=== PATIENT | male | born 1980 | race Two or more races ===

== ENCOUNTER 2018-01-03 13:18 | Emergency (ER) | payer OTHER ==
[2018-01-03 13:35] VITALS: BP 126/69; PULSE 75; TEMP 98.4; BMI 26.6
--- NOTE | 2018-01-03 13:53 | PDOC ---
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) COPD: No - Suicide/Smoking/Psychosocial Hx Smoking History: Never smoked Review of Systems - Review of Systems Able to Perform ROS?: Yes Comments:: 01/03/18 13:52 CONSTITUTIONAL: Absent: fever, chills, diaphoresis, generalized weakness, malaise, loss of appetite CARDIOVASCULAR: Present: chest pain made worse with movement Absent: loss of consciousness, palpitations, irregular heart rate, peripheral edema RESPIRATORY: Absent: cough, shortness of breath, dyspnea with exertion, orthopnea, wheezing, stridor, hemoptysis MUSCULOSKELETAL: Absent: myalgia, arthralgia, joint swelling SKIN: Absent: rash, itching, pallor NEUROLOGIC: Absent: headache, focal weakness or paresthesias, dizziness, unsteady gait, seizure, mental status changes, bladder or bowel incontinence Is the patient limited Icelandic proficient: No *Physical Exam - Vital Signs Last Vital Signs Temp Pulse Resp BP Pulse Ox 98.4 F 75 18 126/69 99 01/03/18 13:32 01/03/18 13:32 01/03/18 13:32 01/03/18 13:32 01/03/18 13:32 - Physical Exam Comments: 01/03/18 13:53 GENERAL: Well developed, well nourished. Awake and alert. No acute distress. HEENT: Normocephalic, atraumatic. PERRLA, EOMI. No conjunctival pallor. Sclera are non- icteric. Moist mucous membranes. Oropharynx is clear. NECK: Supple. Full ROM. No JVD. Carotid pulses 2+ and symmetric, without bruits. No thyromegaly. No lymphadenopathy. CARDIOVASCULAR: Regular rate and rhythm. No murmurs, rubs, or gallops. Distal pulses are 2+ and symmetric. PULMONARY: No evidence of respiratory distress. Lungs clear to auscultation bilaterally. No wheezing, rales or rhonchi. ABDOMINAL: Soft. Non-tender. Non-distended. No rebound or guarding. No organomegaly. Normoactive bowel sounds. MUSCULOSKELETAL Normal range of motion at all joints. No bony deformities or tenderness. No CVA tenderness. EXTREMITIES: No cyanosis. No clubbing. No edema. No calf tenderness. SKIN: Warm and dry. Normal capillary refill. No rashes. No jaundice. NEUROLOGICAL: Alert, awake, appropriate. Cranial nerves 2-12 intact. No deficits to light touch and temperature in face, upper extremities and lower extremities. No motor deficits in the in face, upper extremities and lower extremities. Normoreflexic in the upper and lower extremities. Normal speech. Toes are down- going bilaterally. Gait is normal without ataxia. PSYCHIATRIC: Cooperative. Good eye contact. Appropriate mood and affect. Medical Decision Making - Medical Decision Making 01/03/18 19:30 EKG: Rate 59 bpm, normal sinus rhythm,QTC 370, normal axis. No acute ST-T wave changes *DC/Admit/Observation/Transfer Diagnosis at time of Disposition: Fusion congenital, ribs - Discharge Dispostion Disposition: HOME Condition at time of disposition: Stable Decision to Admit order: No - Referrals Referrals: Andres Zaidi [Primary Care Provider] - - Patient Instructions Printed Discharge Instructions: DI for Atypical Chest Pain Additional Instructions: Your rib x-ray showed fusion of your right third and fourth ribs. This is a normal variant. This may be causing some arthritis. Please take Motrin 800 mg every 8 hours as needed for pain. A prescription was sent to the pharmacy. You make take glucosamine (vitamin) to help with recurrence. Please follow up with physical therapy. Follow-up with her primary care doctor. Return to the emergency department via worsening pain, shortness of breath, difficulty breathing, or have any changes in her symptoms. - Post Discharge Activity Forms/Work/School Notes: Back to Work
--- NOTE | 2018-01-04 23:57 | EKG ---
Test Reason : Blood Pressure : / mmHG Vent. Rate : 059 BPM Atrial Rate : 059 BPM P-R Int : 144 ms QRS Dur : 094 ms QT Int : 374 ms P-R-T Axes : 009 068 038 degrees QTc Int : 370 ms SINUS BRADYCARDIA OTHERWISE NORMAL ECG NO PREVIOUS ECGS AVAILABLE Confirmed by NISHA DELGADO MD ([id number]) on 01/04/2018 11:57:01 PM Referred By: RS Confirmed By:NISHA DELGAOD MD
== END 2018-01-03 15:17 | disposition home or self-care (01) ==
LOC: JERFT 13:18
DX: Q76.6 Other congenital malformations of ribs (principal)
CPT/HCPCS: 71046-TC-FY; 93005; 93010; 99281-25

== ENCOUNTER 2022-09-04 20:31 | Day surgery (SDC) | payer OTHER ==
[2022-09-04 20:40] VITALS: BMI 27.0
[2022-09-04] MEDS ORDERED: SODIUM CHLORIDE 1,000 ML IV STA (21:35)
[2022-09-04] MEDS ORDERED: ACETAMINOPHEN 1000 MG/100 ML BAG IVPB ONE (21:43)
[2022-09-04] MEDS ORDERED: ACETAMINOPHEN INJECTION 100 ML IVPB ONE (22:00)
[2022-09-04 22:44] LABS: BASO % 0.9 % (0-2.0); EOS % 3.3 % (0-4.5); HEMATOCRIT 45.7 % (35.4-49); LYMPH % 44.7 % (8-40); MCH 27.4 pg (25.7-33.7); MCHC 34.9 g/dl (32.0-35.9); MEAN CELL VOLUME 78.4 fl (80-96); MEAN PLT VOLUME 8.4 fl (7.5-11.1); MONO % 4.6 % (3.8-10.2); NEUT % 46.5 % (42.8-82.8); PLATELET COUNT 317 10^3/uL (134-434); RBC 5.84 M/mm3 (4.00-5.60); RDW 13.3 % (11.9-15.9); WHITE BLOOD COUNT 10.2 K/mm3 (4.0-10.0)
[2022-09-04 22:57] LABS: INR 1.02 (0.83-1.09); PROTHROMBIN TIME (PATIENT) 11.7 SEC (9.7-13.0)
[2022-09-04 23:00] LABS: ACTIVATED PTT 34.2 SECONDS (25.2-36.5)
[2022-09-04 23:08] LABS: ALBUMIN 3.9 g/dl (3.4-5.0); CALCIUM 9.3 mg/dL (8.5-10.1)
[2022-09-04 23:09] LABS: BLOOD UREA NITROGEN 21.8 mg/dL (7-18)
[2022-09-04 23:12] LABS: CREATININE 1.1 mg/dL (0.55-1.3)
[2022-09-04 23:13] LABS: TOT PROT 7.2 g/dl (6.4-8.2)
[2022-09-04 23:14] LABS: BILIRUBIN,TOTAL 0.5 mg/dL (0.2-1)
[2022-09-05] MEDS ORDERED: PIPERACILLIN/TAZOB 4.5 GM 4.5 GM in DEXTROSE 5%-WATER 100 ML IVPB ONE (00:46)
[2022-09-05] MEDS ORDERED: SODIUM CHLORIDE 1,000 ML IV SCH ×2 (03:45→11:03)
[2022-09-05] MEDS ORDERED: ACETAMINOPHEN 1000 MG/100 ML BAG IVPB PRN ×2 (08:42→11:03)
[2022-09-05] MEDS ORDERED: PROPOFOL 40 ML ONE (08:59)
[2022-09-05] MEDS ORDERED: MIDAZOLAM HCL 2 MG/2 ML SINGLE DOSE VIAL ONE (08:59)
[2022-09-05] MEDS ORDERED: SUCCINYLCHOLINE CHLORIDE 200 MG/10 ML SYRINGE ONE (08:59)
[2022-09-05] MEDS ORDERED: ROCURONIUM BROMIDE 50 MG/5 ML SYRINGE ONE (08:59)
[2022-09-05] MEDS ORDERED: LIDOCAINE HCL 2% 100 MG/5 ML DISP.SYRIN ONE (08:59)
[2022-09-05] MEDS ORDERED: PIPERACILLIN/TAZOBACTAM 3.375 GM VIAL IVPB ONE (09:45)
[2022-09-05] MEDS ORDERED: DEXAMETHASONE SOD PHOSPHATE 4 MG/1 ML VIAL ONE (09:48)
[2022-09-05] MEDS ORDERED: ACETAMINOPHEN INJECTION 100 ML IVPB ONE ×2 (09:56)
[2022-09-05] MEDS ORDERED: ONDANSETRON 4 MG/2 ML VIAL ONE (09:56)
[2022-09-05] MEDS ORDERED: PIPERACILLIN/TAZOB 3.375 GM 3.375 GM in DEXTROSE 5%-WATER - 50 ML IVPB SCH (10:00)
[2022-09-05] MEDS ORDERED: NEOSTIGMINE METHYLSULFATE 0.5 MG/ML - 10 ML MDV ONE (10:22)
[2022-09-05] MEDS ORDERED: GLYCOPYRROLATE 0.2 MG/1 ML VIAL ONE (10:22)
[2022-09-05 10:23] LABS: PH,URINE 6.5 (5.0-8.0); URINE APPEARANCE CLEAR; URINE BILIRUBIN NEGATIVE (NEGATIVE); URINE COLOR YELLOW; URINE GLUCOSE (UA) NEGATIVE (NEGATIVE); URINE KETONE NEGATIVE (NEGATIVE); URINE LEUK ESTERASE NEGATIVE (NEGATIVE); URINE NITRITE NEGATIVE (NEGATIVE); URINE PROTEIN NEGATIVE (NEGATIVE); URINE UROBILINOGEN 0.2 mg/dL (0.2-1.0)
[2022-09-05] MEDS ORDERED: BUPIVACAINE HCL/PF 0.5% (5 MG/ML) 30 ML VIAL IJ ONE ×2 (10:23)
[2022-09-05] MEDS ORDERED: oxyCODONE HCL 5 MG TABLET PO PRN (10:37)
[2022-09-05] MEDS ORDERED: KETOROLAC TROMETHAMINE 15 MG/ML VIAL IM PRN (10:37)
[2022-09-05] MEDS ORDERED: DOCUSATE SODIUM 100 MG CAPSULE (FP) PO PRN (10:37)
[2022-09-05] MEDS ORDERED: ONDANSETRON 4 MG/2 ML VIAL IVPUSH PRN (10:56)
[2022-09-05] MEDS ORDERED: LACTATED RINGERS SOLUTION 1,000 ML IV SCH (11:00)
[2022-09-05 13:26] LABS: BASO % 0.3 % (0-2.0); EOS % 0.7 % (0-4.5); HEMATOCRIT 43.4 % (35.4-49); LYMPH % 9.7 % (8-40); MCH 27.1 pg (25.7-33.7); MCHC 34.5 g/dl (32.0-35.9); MEAN CELL VOLUME 78.4 fl (80-96); MEAN PLT VOLUME 7.9 fl (7.5-11.1); MONO % 1.7 % (3.8-10.2); NEUT % 87.6 % (42.8-82.8); PLATELET COUNT 262 10^3/uL (134-434); RBC 5.54 M/mm3 (4.00-5.60); RDW 13.1 % (11.9-15.9); WHITE BLOOD COUNT 12.8 K/mm3 (4.0-10.0)
[2022-09-05 13:33] LABS: INR 1.11 (0.83-1.09); PROTHROMBIN TIME (PATIENT) 12.8 SEC (9.7-13.0)
[2022-09-05 13:36] LABS: ACTIVATED PTT 31.9 SECONDS (25.2-36.5)
[2022-09-05 13:57] LABS: CALCIUM 8.4 mg/dL (8.5-10.1)
[2022-09-05 13:58] LABS: MAGNESIUM 2.1 mg/dL (1.8-2.4)
[2022-09-05 13:59] LABS: ALBUMIN 3.4 g/dl (3.4-5.0)
[2022-09-05 14:01] LABS: CREATININE 1.1 mg/dL (0.55-1.3)
[2022-09-05 14:02] LABS: PHOSPHOROUS 2.6 mg/dL (2.5-4.9)
[2022-09-05 14:03] LABS: TOT PROT 6.3 g/dl (6.4-8.2)
[2022-09-05 14:04] LABS: BILIRUBIN,TOTAL 0.8 mg/dL (0.2-1)
[2022-09-05] MEDS ORDERED: ALBUTEROL SO4 2.5/IPRATROPIUM 0.5 INH SOL 3 ML VIAL.NEB. NEB PRN (15:08)
[2022-09-05] MEDS ORDERED: ACETAMINOPHEN 325 MG TABLET (FP) PO PRN (15:09)
[2022-09-05] MEDS ORDERED: PANTOPRAZOLE 40 MG TABLET PO ONE (17:23)
[2022-09-05 22:33] VITALS: RESP 18
[2022-09-06 10:02] LABS: ALBUMIN 3.2 g/dl (3.4-5.0)
[2022-09-06 10:04] LABS: BILIRUBIN,TOTAL 0.8 mg/dL (0.2-1)
[2022-09-06 10:05] LABS: CALCIUM 8.6 mg/dL (8.5-10.1); MAGNESIUM 2.2 mg/dL (1.8-2.4)
[2022-09-06 10:06] LABS: BLOOD UREA NITROGEN 12.4 mg/dL (7-18)
[2022-09-06 10:22] LABS: BASO % 0.3 % (0-2.0); EOS % 0.5 % (0-4.5); HEMATOCRIT 41.9 % (35.4-49); HEMOGLOBIN 14.3 GM/dL (11.7-16.9); LYMPH % 28.7 % (8-40); MCH 27.2 pg (25.7-33.7); MCHC 34.1 g/dl (32.0-35.9); MEAN CELL VOLUME 79.7 fl (80-96); MEAN PLT VOLUME 9.1 fl (7.5-11.1); MONO % 6.5 % (3.8-10.2); PLATELET COUNT 274 10^3/uL (134-434); RBC 5.26 M/mm3 (4.00-5.60); RDW 13.4 % (11.9-15.9)
[2022-09-06 15:53] VITALS: BP 130/83; PULSE 62; TEMP 98.7
== END 2022-09-06 17:09 | disposition home or self-care (01) ==
LOC: JER 20:31 → JERBED 09-05 00:59 → UNDOADMIN 09-05 00:59 → J8W 09-05 06:18 → JERBED 09-05 06:18 → JASUSAT 09-05 11:06 → J8W 09-05 11:26 → JASUSAT 09-06 17:09
PROVIDERS: ATTEND Nurse Practitioner Family
PROC: 0DTJ4ZZ Resection of Appendix, Percutaneous Endoscopic Approach (ICD-10-PCS; principal; 2022-09-05 09:00)
DX: K35.80 Unspecified acute appendicitis (principal)
CPT/HCPCS: 0241U-QW; 36415; 71045-TC-FY; 74176-TC; 80053; 80061; 81003; 83735; 84100; 85025; 85610; 85730; 86850; 86900; 86901; 87086; 88304-TC; 93005; 93010; 94010; 94760; 99285-25

== ENCOUNTER 2022-09-15 11:45 | Inpatient (IN) | payer OTHER ==
[2022-09-15] MEDS ORDERED: ACETAMINOPHEN 1000 MG/100 ML BAG IVPB ONE ×2 (12:26→19:23)
[2022-09-15] MEDS ORDERED: PIPERACILLIN/TAZOB 3.375 GM 3.375 GM in DEXTROSE 5%-WATER - 50 ML IVPB ONE (12:26)
[2022-09-15] MEDS ORDERED: SODIUM CHLORIDE 1,000 ML IV STA (12:26)
[2022-09-15] MEDS ORDERED: VANCOMYCIN 1 GM in D5W (PRE-DOCKED) 1,000 MG/250 ML IVPB ONE (12:26)
[2022-09-15] MEDS ORDERED: LACTATED RINGERS SOLUTION 1000 ML INFUS.BAG IV ONE (12:29)
[2022-09-15] MEDS ORDERED: VANCOMYCIN/WATER FOR INJ (PEG) 1,000 MG/200 ML BAG IVPB ONE (12:43)
[2022-09-15] MEDS ORDERED: ACETAMINOPHEN INJECTION 100 ML IVPB ONE ×2 (12:43→20:22)
[2022-09-15] MEDS ORDERED: PIPERACILLIN/TAZOB 3.375 GM 3.375 GM/50 ML BAG IVPB ONE (12:49)
[2022-09-15 15:13] LABS: VENOUS BASE EXCESS 0.7 mmol/L (-2-2); VENOUS O2 SATURATION 81.3 % (70-80); VENOUS PCO2 45.5 mmHg (38-52); VENOUS PH 7.38 (7.310-7.410)
[2022-09-15 15:53] LABS: EPI CELLS 33 /uL (0-25.1); HYALINE CASTS 3 /uL (0-3.1); PH,URINE 5.5 (5.0-8.0); URINE APPEARANCE CLEAR; URINE BACTERIA 32 /uL (0-1359); URINE BILIRUBIN NEGATIVE (NEGATIVE); URINE COLOR YELLOW; URINE GLUCOSE (UA) NEGATIVE (NEGATIVE); URINE KETONE TRACE (NEGATIVE); URINE LEUK ESTERASE 1+ (NEGATIVE); URINE NITRITE NEGATIVE (NEGATIVE); URINE PROTEIN 2+ (NEGATIVE); URINE RBC 36 /uL (0-23.9); URINE WBC 315 /uL (0-25.8)
[2022-09-15 15:54] LABS: BASO % 0.4 % (0-2.0); EOS % 0.4 % (0-4.5); HEMATOCRIT 43.3 % (35.4-49); LYMPH % 14.3 % (8-40); MCH 27.1 pg (25.7-33.7); MCHC 34.7 g/dl (32.0-35.9); MEAN PLT VOLUME 8.4 fl (7.5-11.1); MONO % 10.7 % (3.8-10.2); NEUT % 74.2 % (42.8-82.8); PLATELET COUNT 324 10^3/uL (134-434); RBC 5.55 M/mm3 (4.00-5.60); RDW 13.3 % (11.9-15.9); WHITE BLOOD COUNT 13.6 K/mm3 (4.0-10.0)
[2022-09-15 16:01] LABS: INR 1.24 (0.83-1.09); PROTHROMBIN TIME (PATIENT) 14.3 SEC (9.7-13.0)
[2022-09-15 16:02] LABS: CHLORIDE 101 mmol/L (98-107); SODIUM 136 mmol/L (136-145)
[2022-09-15 16:04] LABS: ACTIVATED PTT 33.7 SECONDS (25.2-36.5); ALBUMIN 3.6 g/dl (3.4-5.0); CALCIUM 9.1 mg/dL (8.5-10.1)
[2022-09-15 16:05] LABS: ANION GAP 10 MMOL/L (8-16); BLOOD UREA NITROGEN 15.4 mg/dL (7-18); CO2 25 mmol/L (21-32); GLUCOSE,RANDOM 87 mg/dL (74-106)
[2022-09-15 16:07] LABS: CREATININE 1.1 mg/dL (0.55-1.3)
[2022-09-15 16:08] LABS: SGOT/AST 32 U/L (15-37); SGPT/ALT 50 U/L (13-61)
[2022-09-15 16:09] LABS: BILIRUBIN,TOTAL 0.4 mg/dL (0.2-1); TOT PROT 7.4 g/dl (6.4-8.2)
[2022-09-15 16:11] LABS: ALK PHOS 90 U/L (45-117)
[2022-09-16] MEDS ORDERED: SODIUM CHLORIDE 500 ML IV STA (00:21)
[2022-09-16] MEDS ORDERED: PHENAZOPYRIDINE HCL 100 MG TABLET (FP) PO ONE (00:22)
[2022-09-16] MEDS ORDERED: PHENAZOPYRIDINE HCL 100 MG TABLET (FP) ONE (01:10)
[2022-09-16 01:59] LABS: CALCIUM 9.1 mg/dL (8.5-10.1)
[2022-09-16 02:00] LABS: BLOOD UREA NITROGEN 14.2 mg/dL (7-18)
[2022-09-16 02:03] LABS: CREATININE 1.2 mg/dL (0.55-1.3)
[2022-09-16] MEDS ORDERED: ACETAMINOPHEN INJECTION 100 ML IVPB ONE ×2 (02:25→09:46)
[2022-09-16 07:44] LABS: BASO % 0.4 % (0-2.0); EOS % 0.2 % (0-4.5); HEMATOCRIT 38.5 % (35.4-49); HEMOGLOBIN 13.7 GM/dL (11.7-16.9); LYMPH % 14.8 % (8-40); MCH 27.7 pg (25.7-33.7); MCHC 35.5 g/dl (32.0-35.9); MEAN CELL VOLUME 77.9 fl (80-96); MEAN PLT VOLUME 7.7 fl (7.5-11.1); MONO % 11.4 % (3.8-10.2); NEUT % 73.2 % (42.8-82.8); PLATELET COUNT 293 10^3/uL (134-434); RBC 4.94 M/mm3 (4.00-5.60); RDW 13.5 % (11.9-15.9); WHITE BLOOD COUNT 13.2 K/mm3 (4.0-10.0)
[2022-09-16 08:07] LABS: ALBUMIN 3.1 g/dl (3.4-5.0); CALCIUM 8.7 mg/dL (8.5-10.1)
[2022-09-16 08:08] LABS: BLOOD UREA NITROGEN 12.4 mg/dL (7-18)
[2022-09-16 08:10] LABS: PHOSPHOROUS 3.1 mg/dL (2.5-4.9)
[2022-09-16 08:11] LABS: CREATININE 1.1 mg/dL (0.55-1.3)
[2022-09-16 08:12] LABS: BILIRUBIN,TOTAL 0.8 mg/dL (0.2-1); TOT PROT 6.7 g/dl (6.4-8.2)
[2022-09-16] MEDS ORDERED: PIPERACILLIN/TAZOB 3.375 GM 3.375 GM/50 ML BAG IVPB ONE (09:41)
[2022-09-16] MEDS: ACETAMINOPHEN 1000 MG/100 ML BAG IVPB PRN ×2 (09:56→17:47)
[2022-09-16] MEDS ORDERED: VANCOMYCIN/WATER 1,250 MG/250 ML BAG (RESTRICTED TO ID ONLY) IVPB SCH (10:00)
[2022-09-16] MEDS ORDERED: PIPERACILLIN/TAZOB 3.375 GM 3.375 GM in DEXTROSE 5%-WATER - 50 ML IVPB SCH (10:00)
[2022-09-16 11:41] VITALS: BMI 26.3
[2022-09-16] MEDS: ENOXAPARIN NA (PORCINE) 40 MG/0.4 ML DISP.SYRIN SQ SCH (13:25)
[2022-09-16] MEDS: LACTATED RINGERS SOLUTION 1,000 ML/1,000 ML INFUS.BAG IV SCH (15:28)
[2022-09-16] MEDS: PIPERACILLIN/TAZOB 3.375 GM 3.375 GM in DEXTROSE 5%-WATER - 50 ML IVPB SCH (17:05)
[2022-09-16] MEDS ORDERED: KETOROLAC TROMETHAMINE 15 MG/ML VIAL IVPUSH ONE (23:04)
[2022-09-17] MEDS: PIPERACILLIN/TAZOB 3.375 GM 3.375 GM in DEXTROSE 5%-WATER - 50 ML IVPB SCH ×3 (01:45→18:29)
[2022-09-17] MEDS ORDERED: ACETAMINOPHEN 1000 MG/100 ML BAG IVPB PRN (06:21)
[2022-09-17] MEDS ORDERED: ALBUTEROL SO4 2.5/IPRATROPIUM 0.5 INH SOL 3 ML VIAL.NEB. NEB PRN (08:59)
[2022-09-17] MEDS ORDERED: VANCOMYCIN/WATER 1,250 MG/250 ML BAG (RESTRICTED TO ID ONLY) IVPB SCH (10:00)
[2022-09-17] MEDS ORDERED: PIPERACILLIN/TAZOB 3.375 GM 3.375 GM in DEXTROSE 5%-WATER - 50 ML IVPB SCH (10:00)
[2022-09-17] MEDS: ENOXAPARIN NA (PORCINE) 40 MG/0.4 ML DISP.SYRIN SQ SCH (10:05)
[2022-09-17] MEDS: LACTATED RINGERS SOLUTION 1,000 ML/1,000 ML INFUS.BAG IV SCH (17:57)
[2022-09-18] MEDS: PIPERACILLIN/TAZOB 3.375 GM 3.375 GM in DEXTROSE 5%-WATER - 50 ML IVPB SCH ×3 (02:26→17:12)
[2022-09-18] MEDS: LACTATED RINGERS SOLUTION 1,000 ML/1,000 ML INFUS.BAG IV SCH ×2 (03:09→13:32)
[2022-09-18] MEDS: ENOXAPARIN NA (PORCINE) 40 MG/0.4 ML DISP.SYRIN SQ SCH (09:54)
[2022-09-18 10:33] LABS: BASO % 0.7 % (0-2.0); HEMATOCRIT 39.6 % (35.4-49); HEMOGLOBIN 14.3 GM/dL (11.7-16.9); LYMPH % 28.1 % (8-40); MCH 27.6 pg (25.7-33.7); MCHC 36.1 g/dl (32.0-35.9); MEAN CELL VOLUME 76.3 fl (80-96); MEAN PLT VOLUME 7.7 fl (7.5-11.1); MONO % 10.9 % (3.8-10.2); NEUT % 57.3 % (42.8-82.8); PLATELET COUNT 344 10^3/uL (134-434); RBC 5.18 M/mm3 (4.00-5.60); RDW 13.4 % (11.9-15.9); WHITE BLOOD COUNT 10.8 K/mm3 (4.0-10.0)
[2022-09-18 10:47] LABS: CALCIUM 9.3 mg/dL (8.5-10.1)
[2022-09-18 10:48] LABS: ALBUMIN 2.9 g/dl (3.4-5.0); MAGNESIUM 2.2 mg/dL (1.8-2.4)
[2022-09-18 10:51] LABS: CREATININE 1.1 mg/dL (0.55-1.3); TOT PROT 6.9 g/dl (6.4-8.2)
[2022-09-18 10:52] LABS: BILIRUBIN,TOTAL 0.6 mg/dL (0.2-1)
[2022-09-18] MEDS ORDERED: TAMSULOSIN HCL 0.4 MG CAP PO ONE ×2 (14:37→17:00)
[2022-09-18] MEDS: TAMSULOSIN HCL 0.4 MG CAP PO SCH (23:15)
[2022-09-19] MEDS: PIPERACILLIN/TAZOB 3.375 GM 3.375 GM in DEXTROSE 5%-WATER - 50 ML IVPB SCH ×2 (03:00→15:17)
[2022-09-19 10:38] LABS: BASO % 0.9 % (0-2.0); EOS % 3.9 % (0-4.5); HEMATOCRIT 38.8 % (35.4-49); HEMOGLOBIN 13.7 GM/dL (11.7-16.9); LYMPH % 35.5 % (8-40); MCH 27.4 pg (25.7-33.7); MCHC 35.5 g/dl (32.0-35.9); MEAN CELL VOLUME 77.2 fl (80-96); MEAN PLT VOLUME 7.4 fl (7.5-11.1); MONO % 9.4 % (3.8-10.2); NEUT % 50.3 % (42.8-82.8); PLATELET COUNT 365 10^3/uL (134-434); RBC 5.02 M/mm3 (4.00-5.60); RDW 13.8 % (11.9-15.9); WHITE BLOOD COUNT 7.7 K/mm3 (4.0-10.0)
[2022-09-19 11:00] LABS: ALBUMIN 2.9 g/dl (3.4-5.0); BLOOD UREA NITROGEN 15.5 mg/dL (7-18); MAGNESIUM 2.3 mg/dL (1.8-2.4)
[2022-09-19 11:03] LABS: BILIRUBIN,TOTAL 0.5 mg/dL (0.2-1); CREATININE 1.2 mg/dL (0.55-1.3); TOT PROT 6.7 g/dl (6.4-8.2)
[2022-09-19] MEDS: ENOXAPARIN NA (PORCINE) 40 MG/0.4 ML DISP.SYRIN SQ SCH (15:17)
[2022-09-19] MEDS: TAMSULOSIN HCL 0.4 MG CAP PO SCH (15:17)
[2022-09-19 15:57] VITALS: BP 122/73; PULSE 84; RESP 18; TEMP 98.6
== END 2022-09-19 17:48 | disposition home or self-care (01) | DRG 872 ==
LOC: JER 11:45 → JERBED 20:50 → J8W 09-16 10:58
PROVIDERS: ADMIT Internal Medicine; ATTEND Nurse Practitioner Family
DX: A41.89 Other specified sepsis (principal); N39.0 Urinary tract infection, site not specified; D72.829 Elevated white blood cell count, unspecified; R00.0 Tachycardia, unspecified; K62.89 Other specified diseases of anus and rectum; J45.909 Unspecified asthma, uncomplicated; E78.00 Pure hypercholesterolemia, unspecified; R34 Anuria and oliguria; R33.9 Retention of urine, unspecified; R50.9 Fever, unspecified; Z90.49 Acquired absence of other specified parts of digestive tract
CPT/HCPCS: 0241U-QW; 36415; 71045-TC-FY; 74177-TC; 80048; 80053; 81003; 82803; 83605; 83735; 84100; 84153; 84484; 85025; 85610; 85730; 86850; 86900; 86901; 87040; 87086; 93005; 93010; 94010; 97116-GP; 97161-GP; 99285-25; Q9967